=== PATIENT | male | born 1995 | race Caucasian/White ===

== ENCOUNTER 2016-10-09 06:56 | Emergency (ER) | payer OTHER ==
[~2016-10-09] VITALS: Ht 175.3 cm; Wt 76.0 kg
[2016-10-09 06:59] VITALS: TEMP 36.9; Ht 175.3 cm; Wt 76.0 kg
[2016-10-09] MEDS ORDERED: SODIUM CHLORIDE 0.9% 1000ML 2,000 ML IV STA (07:28)
[2016-10-09] MEDS ORDERED: ONDANSETRON INJ 2 MG/ML 2 ML VIAL IV STA (07:28)
[2016-10-09 07:40] LABS: BASO % 0.1 %; BASO ABS # 0.01 K/uL (0-0.2); EOS % 0.3 %; HEMATOCRIT 41.8 % (42-52); IG% 0.2 %; LYMPH % 7.6 %; MEAN CELL VOLUME 74.6 fL (80-100); MEAN CORPUSCULAR HEMOGLOBIN 25.7 pg (25-34); MEAN CORPUSCULAR HGB CONC 34.4 g/dl (32-36); MEAN PLATELET VOLUME 10.4 fL (7.4-10.4); MONO % 3.1 %; NEUT % 88.7 %; PLATELET COUNT 275 K/uL (130-400); WHITE BLOOD COUNT 9.23 K/uL (4.8-10.8)
[2016-10-09 07:47] LABS: CALCIUM 8.8 mg/dl (8.5-10.1); CREATININE 1.2 mg/dl (0.60-1.40); MAGNESIUM 1.9 mg/dl (1.8-2.4); POTASSIUM 4.1 mmol/L (3.5-5.1)
[2016-10-09 07:59] LABS: URINE APPEARANCE CLEAR (CLEAR); URINE BILIRUBIN NEG (NEG); URINE COLOR YELLOW; URINE NITRITE NEG (NEG); URINE SPECIFIC GRAVITY 1.035 (1.000-1.030); UROBILINOGEN NEG (NEG); ZZUR CULT IF INDIC CLEAN CATCH NO
[2016-10-09 08:04] LABS: COMPLETE YES
[2016-10-09 08:06] LABS: MANUAL MICROSCOPIC REQUIRED? NO; REVIEW REQ? NO
--- NOTE | 2016-10-09 08:41 | EMERGENCY ROOM VISIT NOTE ---
History First contact with patient: 07:16 Chief Complaint: VOMITING Stated Complaint: VOMITING,NAUSEA,DIARRHEA,HEADACHE Nursing Triage Summary: pt c/o vomiting last night at 2130, feeling dizzy after coming home from dinner ,ate at [employer]. vomited approx 12-15 times this am . has diarrhea with vomiting. History of Present Illness Patient is a 21-year-old male who presents to the emergency Department this morning for evaluation of his nausea, vomiting, diarrhea, headache. He reports that he ate chicken last night and shortly after arriving home he developed nausea and vomiting. He had diarrhea throughout the night as well. He has not slept well secondary to persistent vomiting and diarrhea. He complains of mild headache as well as abdominal cramping. He rates his current discomfort as a 5/ 10. He denies any other recent sick contacts. He denies any fevers, chills, chest pain, palpitations, short of breath, hematemesis, hematochezia, melena, hematuria, or dysuria. He denies any recent long travel, recent antibiotic use , or drinking from poor water sources. Review of Systems A complete 10-point Review of Systems was discussed with the patient, with pertinent positives and negatives listed in the History of Present Illness. All remaining Review of Systems questions can be considered negative unless otherwise specified. Past Medical/Surgical History Medical Problems: (1) Acute tonsillitis (2) Acute tonsillitis (3) Anxiety (4) Anxiety (5) Bacterial conjunctivitis (6) Dehydration (7) Near syncope (8) Near syncope (9) No Known Active Medical Problems (10) Pain in gums (11) Pain, dental Family History Diabetes mellitus Social History Smoking Status: Light Tobacco Smoker Smokeless Tobacco Use: No Alcohol Use: occasionally Drug Use: marijuana Marital Status: single Housing Status: lives with roommate Occupation Status: student Current/Historical Medications Scheduled PRN Ondasetron Odt (Zofran Odt), 1 TAB SL Q6 PRN for Nausea or Vomiting Allergies Coded Allergies: No Known Allergies (Unverified , 08/29/15) Physical Exam Vital Signs Date Time Temp Pulse Resp B/P Pulse Ox O2 Delivery O2 Flow Rate FiO2 10/09/16 08:42 94 16 126/59 97 Room Air 10/09/16 06:59 36.9 109 18 104/68 94 Room Air Pain Rating (0-10): 5 Physical Exam VITAL SIGNS - Vital signs and nursing notes were reviewed. GENERAL - 21-year-old male appearing his stated age who is in no acute distress. Communicates well with provider and answers questions appropriately. HEAD - NC/AT. EYES - PERRL with EOMI bilaterally. Sclera anicteric. Palpebral conjunctiva pink and moist with no injection noted. EARS - No deformities of external structures noted on gross examination bilaterally. No pain elicited with palpation of the tragus bilaterally. External auditory canals without discharge or otorrhea. Tympanic membranes pearly molina without retraction or bulging. NOSE - Midline and without cyanosis. No epistaxis or purulent drainage noted. Septum midline without deviation or septal hematoma noted. MOUTH/OROPHARYNX - Without perioral cyanosis. Buccal mucosa pink and moist and without leukoplakia. Tongue midline with equal elevation of palate bilaterally. No tonsillar hypertrophy, erythema, or exudates noted. Good dentition noted. NECK - Neck with FROM. Supple to palpation. No nuchal rigidity. LUNGS - Chest wall symmetric without accessory muscle use, intercostals retractions, or central cyanosis. Normal vesicular breath sounds CTA B/L. No wheezes, rales, or rhonchi appreciated. CARDIAC - RRR with S1/S2. No murmur, rubs, or gallops appreciated. ABDOMEN - Abdominal contour flat and without pulsations or visible masses. BS normoactive all four quadrants. No tenderness to palpation appreciated throughout. No guarding. No Rebound Tenderness. Negative Rovsing's. Negative Azul's. No palpable masses, hepatosplenomegaly, or ascites noted. PSYCH - A&Ox3 and cooperates fully with examiner. Pt is very pleasant and interacts well with examiner. Medical Decision & Procedures Laboratory Results 10/09/16 07:10 Red Blood Count 5.60, Mean Corpuscular Volume 74.6, Mean Corpuscular Hemoglobin 25.7, Mean Corpuscular Hemoglobin Concent 34.4, Mean Platelet Volume 10.4, Neutrophils (%) (Auto) 88.7, Lymphocytes (%) (Auto) 7.6, Monocytes (%) (Auto) 3.1, Eosinophils (%) (Auto) 0.3, Basophils (%) (Auto) 0.1, Neutrophils # (Auto) 8.18, Lymphocytes # (Auto) 0.70, Monocytes # (Auto) 0.29, Eosinophils # (Auto) 0.03, Basophils # (Auto) 0.01 10/09/16 07:10 Test 10/09/16 07:10 10/09/16 07:50 White Blood Count 9.23 K/uL (4.8-10.8) Red Blood Count 5.60 M/uL (4.7-6.1) Hemoglobin 14.4 g/dL (14.0-18.0) Hematocrit 41.8 % (42-52) Mean Corpuscular Volume 74.6 fL (80-100) Mean Corpuscular Hemoglobin 25.7 pg (25-34) Mean Corpuscular Hemoglobin Concent 34.4 g/dl (32-36) Platelet Count 275 K/uL (130-400) Mean Platelet Volume 10.4 fL (7.4-10.4) Neutrophils (%) (Auto) 88.7 % Lymphocytes (%) (Auto) 7.6 % Monocytes (%) (Auto) 3.1 % Eosinophils (%) (Auto) 0.3 % Basophils (%) (Auto) 0.1 % Neutrophils # (Auto) 8.18 K/uL (1.4-6.5) Lymphocytes # (Auto) 0.70 K/uL (1.2-3.4) Monocytes # (Auto) 0.29 K/uL (0.11-0.59) Eosinophils # (Auto) 0.03 K/uL (0-0.5) Basophils # (Auto) 0.01 K/uL (0-0.2) RDW Standard Deviation 37.2 fL (36.4-46.3) RDW Coefficient of Variation 13.9 % (11.5-14.5) Immature Granulocyte % (Auto) 0.2 % Immature Granulocyte # (Auto) 0.02 K/uL (0.00-0.02) Red Blood Cell Morphology Unremarkable Anion Gap 11.0 mmol/L (3-11) Est Creatinine Clear Calc Drug Dose 96.6 ml/min Estimated GFR () 98.9 Estimated GFR (Non- 85.3 BUN/Creatinine Ratio 25.0 (10-20) Calcium Level 8.8 mg/dl (8.5-10.1) Magnesium Level 1.9 mg/dl (1.8-2.4) Total Bilirubin 0.5 mg/dl (0.2-1) Aspartate Amino Transf (AST/SGOT) 27 U/L (15-37) Alanine Aminotransferase (ALT/SGPT) 55 U/L (12-78) Alkaline Phosphatase 83 U/L (45-117) Total Protein 7.9 gm/dl (6.4-8.2) Albumin 4.0 gm/dl (3.4-5.0) Globulin 3.9 gm/dl (2.5-4.0) Albumin/Globulin Ratio 1.0 (0.9-2) Lipase 72 U/L (73-393) Urine Color YELLOW Urine Appearance CLEAR (CLEAR) Urine pH 5.0 (4.5-7.5) Urine Specific [place] 1.035 (1.000-1.030) Urine Protein NEG (NEG) Urine Glucose (UA) NEG (NEG) Urine Ketones TRACE (NEG) Urine Occult Blood NEG (NEG) Urine Nitrite NEG (NEG) Urine Bilirubin NEG (NEG) Urine Urobilinogen NEG (NEG) Urine Leukocyte Esterase NEG (NEG) Medications Administered Medications (Trade) Dose Ordered Sig/Sharif Route Start Time Stop Time Status Last Admin Dose Admin Sodium Chloride (Nss 1000ml) 2,000 ml @ 999 mls/hr Q2H1M STAT IV 10/09/16 07:28 10/09/16 09:28 DC 10/09/16 07:44 999 MLS/HR Ondansetron HCl (Zofran Inj) 4 mg NOW STAT IV 10/09/16 07:28 10/09/16 07:29 DC 10/09/16 07:43 4 MG ED Course Patient was seen and evaluated by myself. Tabs were drawn, saline lock in place. The patient was treated with 4 mg Zofran and intravenously for nausea. He was hydrated with 2000 mL of normal saline. Laboratory results demonstrate no acute leukocytosis, worrisome anemia, or bandemia. The patient has no significant electrolyte abnormalities. Urinalysis does not suggest infection. The patient was reevaluated and is resting comfortably and feels markedly better at this time. The patient was educated on today's laboratory findings. The patient was educated on worrisome symptoms for return visit to the emergency department. Patient discharged home afebrile and in good condition. Medical Decision Given the patient's presentation and stated complaints, I did elect to perform the above-mentioned workup. Patient presents complaining of nausea, vomiting, diarrhea. He has mild headache as well. There is no fever. The patient has no leukocytosis. Patient is completely neurologically intact. His abdomen is soft and nontender to palpation. He responded well to IV fluid resuscitation and antinausea medication. Patient feels much better at this time. He will follow-up with [facility] from today's visit or return in the setting of any changing or worsening symptoms. Patient discharged home afebrile and in good condition. In the evaluation and treatment of this patient, the following differential diagnoses were considered: Appendicitis, Diverticulitis, Diverticulosis, Colitis , Ischemic Colitis, Inflammatory Bowel Disease, Irritable Bowel Disease, Testicular Torsion, Kidney Stone, Pyelonephritis, Hydronephrosis, Cholecystitis , Ascending Cholangitis, Choledocholithiasis, GERD. Impression Primary Impression: Nausea, vomiting, and diarrhea Departure Information Dispostion Home / Self-Care Condition GOOD Prescriptions Ondasetron Odt (ZOFRAN ODT) 4 Mg Tab 1 TAB SL Q6 Y for Nausea or Vomiting for 5 Days, #20 TAB Prov: John Isaac PA-C 10/09/16 Referrals [facility] (PCP) Patient Instructions ED Food Poison Or Gastroenteritis, [facility] Additional Instructions You have been treated in the Emergency Department your nausea, vomiting, and diarrhea. You have been prescribed Zofran to be used for any nausea or vomiting. Take as prescribed. For pain control, you can use the following [id number] medicines (if >12 yo): - Regular strength (325mg/tab) Tylenol (acetaminophen) 2 tabs every 4-6 hours as needed. Do not exceed 12 tablets in a 24 hour period. Avoid taking more than 4 grams (4000 mg) of Tylenol per day. This includes any other sources of acetaminophen you may take on a regular basis. - Regular strength (200 mg/tab) Advil (ibuprofen) 1-2 tabs every 4-6 hours as needed. Do not exceed a dose of 3200 mg per day. Drink plenty of water and stay well hydrated. As with any trip to the Emergency Department, you should follow-up with your Primary Care Provider from today's visit. Return to the emergency department if your symptoms persist despite treatment plan outlined above or if the following symptoms occur: increased fevers, chills , worsening nausea/vomiting, blood in your stool or urine.
[2016-10-09 08:42] VITALS: BP 126/59; PULSE 94; O2SAT 97
[2016-10-09] MEDS ORDERED: ONDA4TAB10 SL (08:55)
== END 2016-10-09 09:05 | disposition home or self-care (01) ==
LOC: C.EDB 06:58
DX: R11.2 Nausea with vomiting, unspecified (principal); R19.7 Diarrhea, unspecified; F17.200 Nicotine dependence, unspecified, uncomplicated; F41.9 Anxiety disorder, unspecified; Z83.3 Family history of diabetes mellitus

== ENCOUNTER 2016-11-23 23:34 | Emergency (ER) | payer OTHER ==
[~2016-11-23] VITALS: Ht 177.8 cm; Wt 78.4 kg
[2016-11-23 23:36] VITALS: TEMP 37; Ht 177.8 cm; Wt 78.4 kg
[2016-11-24] MEDS ORDERED: AMOXICIL/CLAVU 875MG HOME PACK PO ONE
[2016-11-24] MEDS ORDERED: AMOX875T PO (00:31)
[2016-11-24 00:50] VITALS: BP 106/53; PULSE 80; O2SAT 99
--- NOTE | 2016-11-24 01:03 | EMERGENCY ROOM VISIT NOTE ---
History First contact with patient: 23:45 Chief Complaint: FACIAL PAIN/INJURY Stated Complaint: LEFT SIDE OF FACE SWOLLEN,PAIN UP TO EAR History of Present Illness The patient is a 21 year old male who presents to the Emergency Room with complaints of pain and swelling that began under his left sided jaw and is now radiating up to the left side of his face into his left ear. 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 He has not had fever or chills. The patient does not have dental pain, but does state that he has had intermittent sinus congestion symptoms for the past few weeks. He does not have distinct known exposure to disease. He has been able to eat and drink as normal. He has not taken any medication [id number] for his symptoms. He rates his current discomfort a 5/10. Review of Systems More than 10 systems were reviewed and otherwise negative with the exception of history of present illness. Past Medical/Surgical History Medical Problems: (1) Acute tonsillitis (2) Acute tonsillitis (3) Anxiety (4) Anxiety (5) Bacterial conjunctivitis (6) Dehydration (7) Near syncope (8) Near syncope (9) No Known Active Medical Problems (10) Pain in gums (11) Pain, dental Family History Diabetes mellitus Social History Smoking Status: Current Every Day Smoker Alcohol Use: occasionally Drug Use: marijuana Marital Status: single Housing Status: lives with roommate Occupation Status: student Current/Historical Medications Scheduled Amoxicillin & Pot Clavulanate (Augmentin 875-125 mg), 1 TAB PO BID Allergies Coded Allergies: No Known Allergies (Unverified , 11/24/16) Physical Exam Vital Signs Date Time Temp Pulse Resp B/P Pulse Ox O2 Delivery O2 Flow Rate FiO2 11/24/16 00:50 80 16 106/53 99 11/23/16 23:36 37.0 79 16 112/68 99 Room Air Pain Rating (0-10): 0 Physical Exam VITALS: Vitals are noted on the nurse's note and reviewed by myself. Vital signs stable. GENERAL: Well-developed, well-nourished, male, who is in no acute distress and resting comfortably. Patient is cooperative with the examination. EARS: External ear normal. External auditory canals clear, tympanic membranes pearly molina without erythema or effusion bilaterally. EYES: Pupils equal round and reactive to light and accommodation. Conjunctivae without injection, sclerae without icterus. Extraocular movements intact. NOSE: Patent, turbinates without inflammation or discharge. MOUTH: Mucous membranes moist. Tonsils are not enlarged. Pharynx without erythema, blood, or exudate. Uvula midline. Airway patent. NECK: Supple without nuchal rigidity. Tenderness appreciated under the left side mandible into the anterior aspect of the left auricle. This could represent a submandibular into parotid gland distribution. HEART: Regular rate and rhythm without murmurs gallops or rubs. LUNGS: Clear to auscultation bilaterally without wheezes, rales or rhonchi. No retractions or accessory muscle use. Medical Decision & Procedures Laboratory Results Test 11/24/16 00:10 ED Course Physical exam and history were performed. Nursing notes and EMR were reviewed. Patient appears to have left-sided jaw swelling in the distribution that also includes the left preauricular area. The patient does report a past history of sinus infections, and he does not have other significant findings on exam. The patient will be treated with Augmentin for the possibility of a sinus infection. My primary concern is the patient may have mumps. He has swelling in a distribution that could be consistent with this, and being an international student I am unsure of his exact immunization status. Appropriate testing was performed under the Department of Health recommendations. I did involve the charge nurse with this, and we contacted appropriate hospital personnel regarding this case. His test results will be monitored. I directed the patient follow-up with [facility] for further care and management. I did have a lengthy discussion with the patient regarding the possibility of a positive mumps diagnosis. The patient was otherwise invited back to the ER with any new, worsening, or concerning symptoms. The chart was completed utilizing [employer] Voice Recognition Software. Grammatical errors, random word insertions, pronoun errors, and incomplete sentences are an occasional consequence of this system due to software limitations, ambient noise, and hardware issues. Any formal questions or concerns about the content, text, or information contained within the body of this dictation should be directly addressed to the provider for clarification. . Medical Decision Differential diagnosis: Etiologies such as sinusitis, dental infection, mumps, viral syndrome, otitis, pharyngitis, pneumonia, influenza, meningitis, urinary tract infection, sepsis, bacteremia, as well as others were entertained. Impression Primary Impression: Left facial swelling Departure Information Dispostion Home / Self-Care Condition GOOD Prescriptions Amoxicillin & Pot Clavulanate (Augmentin 875-125 mg) 1 Tab Tab 1 TAB PO BID for 9 Days, #18 TAB Prov: Simon Oates PA-C 11/24/16 Forms HOME CARE DOCUMENTATION FORM, IMPORTANT VISIT INFORMATION Patient Instructions [facility] Additional Instructions You were seen and evaluated today on an emergency basis only. This is not a substitute for, or an effort to provide, complete comprehensive medical care. It is not possible to recognize and treat all injuries or illnesses in a single emergency department visit. For this reason it is recommended that you followup with [facility] this week for ongoing care and evaluation. Your symptoms today may be the result of a sinus infection. We are also very concerned that your symptoms may be the result of a viral mumps infection. We have performed testing today to help determine if you have Mumps. The results will take several days to come back, and you will be contacted if they are positive. Amoxicillin Clavulanate (Augmentin) 875mg: Take one pill twice daily for 10 total days for your infection. All antibiotics can cause diarrhea. If this occurs and you feel worse or it does not resolve in 1-2 days follow up with your doctor or return to the Emergency Department as this could be signs of serious underlying problems. Any medication can cause an allergic reaction, stop the pills immediately and return to the ER for rash, hives, breathing difficulties, or swelling. For baseline pain relief you may alternate ibuprofen and acetaminophen every 4 hours for pain control. Take 600 mg ibuprofen (Advil) and then 4 hours later take 1000 mg acetaminophen (Tylenol). Do not take more than 3000 mg acetaminophen in a single day. You are welcome to return to the emergency department anytime with new, worsening, or concerning symptoms.
[2016-11-24 02:33] LABS: INFLUENZA A PCR Neg for Influ A (NEG); INFLUENZA B PCR Neg for Influ B (NEG)
== END 2016-11-24 00:51 | disposition home or self-care (01) ==
LOC: C.EDB 23:35 → C.EDC 11-24 00:51
DX: R22.0 Localized swelling, mass and lump, head (principal); F41.9 Anxiety disorder, unspecified; F17.200 Nicotine dependence, unspecified, uncomplicated

== ENCOUNTER → 2016-12-19 | Day surgery (SDC) | payer OTHER ==
[~2016-12-19] MED LIST: CEFAZOLIN 2000 MG/60 ML D5W IV SCH; LACTATED RINGER'S 1000ML 1,000 ML IV SCH; OXYMETAZOLINE HCL 0.05% NA SPR 15 ML BTL SCH
== END | disposition home or self-care (01) ==
LOC: EDSTATUS 11:00 → C.PAT 12:53
DX: J34.2 Deviated nasal septum (principal)